=== PATIENT | male | born 1985 | race Caucasian/White ===

== ENCOUNTER 2019-12-06 11:39 | Emergency (ER) | payer OTHER ==
[~2019-12-06] VITALS: Ht 180.3 cm; Wt 65.8 kg
[2019-12-06] MEDS ORDERED: DICLOFENAC SOD100 MG PO (16:42)
[2019-12-06] MEDS ORDERED: FLONASE ALLERG9.9 ML NASAL (16:42)
[2019-12-06] MEDS ORDERED: PYRIDIUM100 MG PO (16:42)
== END 2019-12-06 17:00 | disposition home or self-care (01) ==
LOC: ER 11:39
DX: L72.0 Epidermal cyst (principal); N50.812 Left testicular pain; R07.89 Other chest pain

== ENCOUNTER → 2020-05-13 11:24 | Outpatient (CLI) | payer OTHER ==
[~2020-05-13 11:24] MED LIST: DICLOFENAC SOD100 MG PO; FLONASE ALLERG9.9 ML NASAL; PYRIDIUM100 MG PO
== END | disposition home or self-care (01) ==
LOC: EKG 11:24
PROVIDERS: ATTEND Internal Medicine Endocrinology, Diabetes & Metabolism
DX: E03.8 Other specified hypothyroidism (principal)

== ENCOUNTER 2020-06-16 07:59 | Outpatient (CLI) | payer OTHER | END 2020-06-16 08:13 | disposition home or self-care (01) | LOC: NUCLEAR 07:59 | PROVIDERS: ATTEND Internal Medicine | DX: E04.1 Nontoxic single thyroid nodule (principal) | CPT/HCPCS: 78012; A9531 ==

== ENCOUNTER 2020-06-17 08:37 | Outpatient (CLI) | payer OTHER | END 2020-06-17 08:53 | disposition home or self-care (01) | LOC: NUCLEAR 08:37 | PROVIDERS: ATTEND Internal Medicine | DX: E04.1 Nontoxic single thyroid nodule (principal) | CPT/HCPCS: 78013; A9512 ==

== ENCOUNTER 2023-07-28 16:58 | Emergency (ER) | payer OTHER ==
[~2023-07-28] VITALS: Ht 180.3 cm; Wt 74.8 kg
[2023-07-28 17:50] LABS: HEMATOCRIT 39.3 % (39.0-48.0); HEMOGLOBIN 13.2 g/dL (13-16.00); MEAN CELL VOLUME 86.1 fL (80.0-100.00); MEAN CORPUSCULAR HEMOGLOBIN 28.9 pg (27.00-32.0); MEAN CORPUSCULAR HGB CONC 33.6 g/dl (32.0-36.0); PLATELET COUNT 273 K/uL (150-450); RED BLOOD COUNT 4.56 M/uL (4.00-6.00); RED CELL DISTRIBUTION WIDTH 13.1 % (11.5-14.5)
[2023-07-28 18:11] LABS: CALCIUM 8.8 mg/dL (8.5-10.1); CREATININE SERUM 1.09 mg/dL (0.70-1.30); GFR 75.31; POTASSIUM 4.12 mEq/L (3.5-5.1)
[2023-07-28] MEDS ORDERED: DICLOFENAC POTA50 MG PO (20:42)
[2023-07-28] MEDS ORDERED: NORFLEX100MG PO (20:42)
== END 2023-07-28 21:03 | disposition home or self-care (01) ==
LOC: ER 16:58
PROVIDERS: General Practice
DX: R07.89 Other chest pain (principal); M94.0 Chondrocostal junction syndrome [Tietze]; G40.909 Epilepsy, unspecified, not intractable, without status epilepticus

== ENCOUNTER 2024-10-02 19:21 | Emergency (ER) | payer OTHER ==
[~2024-10-02] VITALS: Ht 180.3 cm; Wt 63.5 kg
[~2024-10-02 19:21] MED LIST changes: +DICLOFENAC POTA50 MG PO; +NORFLEX100MG PO
[2024-10-03 01:05] LABS: HEMATOCRIT 40.4 % (39.0-48.0); HEMOGLOBIN 13.6 g/dL (13-16.00); MEAN CELL VOLUME 90.3 fL (80.0-100.00); MEAN CORPUSCULAR HEMOGLOBIN 30.3 pg (27.00-32.0); MEAN CORPUSCULAR HGB CONC 33.6 g/dl (32.0-36.0); PLATELET COUNT 251 K/uL (150-450); RED BLOOD COUNT 4.48 M/uL (4.00-6.00); RED CELL DISTRIBUTION WIDTH 13.5 % (11.5-14.5)
[2024-10-03 01:35] LABS: ALBUMIN 3.9 gm/dL (3.4-5.0); BILIRUBIN TOTAL 0.95 mg/dL (0.3-1.2); CALCIUM 8.7 mg/dL (8.5-10.1); CREATININE SERUM 1.01 mg/dL (0.70-1.30); GFR 81.81; GLOBULINA 3.3 G/DL (2.4-3.5); POTASSIUM 3.78 mEq/L (3.5-5.1); TOTAL PROTEIN 7.2 gm/dL (6.4-8.2)
[2024-10-03 01:49] LABS: PH,URINE 6.5 (5.0-8.0); URINE APPEARANCE Cloudy; URINE BILIRRUBIN Negative (NEGATIVE); URINE BLOOD Large; URINE COLOR Yellow; URINE GLUCOSE Negative (NEGATIVE); URINE KETONE Trace (NEGATIVE); URINE LEUKOCYTE Moderate; URINE NITRATE Negative
[2024-10-03 04:36] LABS: URINE RBC 36-50 /HPF; URINE WBC 41-50 /hpf
[2024-10-03 04:37] LABS: URINE BACTERIA MODERATE; URINE MUCUS SCANT; URINE PROTEIN 300 (NEGATIVE)
[2024-10-03] MEDS ORDERED: CEPHALEXIN500 MG PO ×2 (05:11)
[2024-10-03] MEDS ORDERED: KETO10TA2 PO ×2 (05:11)
[2024-10-03] MEDS ORDERED: CEFTRIAXONE SODIUM 1,000 MG VIAL IM STA (05:12)
[2024-10-03] MEDS ORDERED: LIDOCAINE HCL 1% 10ML VIAL ONE (05:16)
[2024-10-03] MEDS ORDERED: CEFTRIAXONE SODIUM 1,000 MG VIAL ONE (05:16)
== END 2024-10-03 05:26 ==
LOC: ER 19:23
PROVIDERS: Preventive Medicine Public Health & General Preventive Medicine
DX: N39.0 Urinary tract infection, site not specified (principal)

== ENCOUNTER 2024-11-17 17:37 | Emergency (ER) | payer OTHER ==
[~2024-11-17] VITALS: Ht 180.3 cm; Wt 68.0 kg
[~2024-11-17 17:37] MED LIST changes: +CEPHALEXIN500 MG PO; +KETO10TA2 PO
[2024-11-17] MEDS ORDERED: 0.9 % SODIUM CHLORIDE 500 ML IV ONE (18:45)
[2024-11-17] MEDS ORDERED: ONDANSETRON HCL 2 MG/ML VIAL IV ONE (18:45)
[2024-11-17] MEDS ORDERED: FAMOTIDINE/PF 20 MG/2 ML VIAL IV ONE (18:45)
[2024-11-17 19:15] LABS: HEMATOCRIT 45.9 % (39.0-48.0); HEMOGLOBIN 15.7 g/dL (13-16.00); MEAN CELL VOLUME 90.6 fL (80.0-100.00); MEAN CORPUSCULAR HGB CONC 34.2 g/dl (32.0-36.0); PLATELET COUNT 291 K/uL (150-450); RED BLOOD COUNT 5.07 M/uL (4.00-6.00); RED CELL DISTRIBUTION WIDTH 13.2 % (11.5-14.5)
[2024-11-17 20:16] LABS: INR 1.04; PARTIAL THROMBOPLASTIN TIME 26.8 SECONDS (22.0-34.0); PROTHROMBIN TIME 11.3 SECONDS (9.0-11.5)
[2024-11-17 20:17] LABS: URINE APPEARANCE Clear; URINE BILIRRUBIN Negative (NEGATIVE); URINE BLOOD Negative; URINE COLOR Yellow; URINE GLUCOSE Negative (NEGATIVE); URINE KETONE Negative (NEGATIVE); URINE LEUKOCYTE Trace; URINE NITRATE Negative; URINE PROTEIN Negative (NEGATIVE); URINE UROBILINOGEN 0.2 E.U./dl
[2024-11-17 20:23] LABS: URINE BACTERIA 129.7 uL (0.0-1933); URINE EPITHELIAL CELLS 5.5 uL (0.0-38.8); URINE RBC 6.4 uL (0.0-20.8); URINE WBC 164.6 uL (0.0-23.2)
[2024-11-17 20:25] LABS: ALBUMIN 4.4 gm/dL (3.4-5.0); BILIRUBIN TOTAL 0.44 mg/dL (0.3-1.2); BILIRUBIN,CONJUGATED 0.12 mg/dL (0.0-0.2); BILIRUBIN,UNCONJUGATED 0.32 mg/dL (0.0-0.6); CALCIUM 9.6 mg/dL (8.5-10.1); CREATININE SERUM 0.94 mg/dL (0.70-1.30); GFR 88.88; GLOBULINA 3.6 G/DL (2.4-3.5); POTASSIUM 4.37 mEq/L (3.5-5.1)
[2024-11-17] MEDS ORDERED: MORPHINE SULFATE 2 MG/ML SYRINGE IV ONE (21:30)
[2024-11-17] MEDS ORDERED: KETOROLAC TROMETHAMINE 30 MG VIAL IV ONE (22:00)
[2024-11-17] MEDS ORDERED: PROTONIX40 MG PO (22:49)
[2024-11-17] MEDS ORDERED: LEVSIN/SL0.125 MG SL (22:49)
== END 2024-11-17 22:59 | disposition home or self-care (01) ==
LOC: ER 17:40
PROVIDERS: Emergency Medicine
DX: N20.0 Calculus of kidney (principal); R10.13 Epigastric pain; G40.802 Other epilepsy, not intractable, without status epilepticus
CPT/HCPCS: 36415; 76700; 96365; 96366; 99284; J1885; J2270; J2405; J3490; J7042

== ENCOUNTER 2025-04-15 07:51 | Emergency (ER) | payer OTHER ==
[~2025-04-15] VITALS: Ht 180.3 cm; Wt 65.8 kg
[~2025-04-15 07:51] MED LIST changes: +LEVSIN/SL0.125 MG SL; +PROTONIX40 MG PO
[2025-04-15] MEDS ORDERED: ACETAMINOPHEN 500 MG GEL..CAP PO ONE ×2 (07:54→08:30)
[2025-04-15] MEDS ORDERED: 0.9 % SODIUM CHLORIDE 1,000 ML IV SCH (08:30)
[2025-04-15 09:33] LABS: BASO % 0.5 % (0.1-1.2); EOS # 0.00 (0.04-0.54); EOS % 0.0 % (0.7-7.0); LYMPH # 2.32 (1.18-3.74); LYMPH % 36.4 % (19.3-53.1); MEAN PLATELET VOLUME 8.50 fl (9.4-12.4); MONO # 0.42 (0.24-0.82); MONO % 6.6 % (4.7-12.5); NEUT # 3.58 (1.56-6.13); NEUT % 56.0 % (34.0-71.1); RED CELL DISTRIBUTION WIDTH 11.9 % (11.6-14.4)
[2025-04-15 09:52] LABS: URINE APPEARANCE Clear; URINE BILIRRUBIN Small (NEGATIVE); URINE BLOOD Negative; URINE COLOR Dark Yellow; URINE GLUCOSE Negative (NEGATIVE); URINE LEUKOCYTE Trace; URINE NITRATE Negative; URINE PROTEIN 30 (NEGATIVE); URINE UROBILINOGEN 1.0 E.U./dl
[2025-04-15 09:54] LABS: URINE BACTERIA 21.5 uL (0.0-1933); URINE EPITHELIAL CELLS 25.6 uL (0.0-38.8); URINE RBC 18.7 uL (0.0-20.8); URINE WBC 16.4 uL (0.0-23.2)
[2025-04-15 10:16] LABS: COVID-19 AG NEGATIVE (NEGATIVE)
[2025-04-15 10:18] LABS: ALT/SGPT 36.0 U/L (12-78); AST/SGOT 22.0 U/L (15-37); BILIRUBIN TOTAL 0.49 mg/dL (0.3-1.2); BILIRUBIN,CONJUGATED 0.13 mg/dL (0.0-0.2)
[2025-04-15 10:23] LABS: URINE CAST 0.73 uL (0.0-1.40); URINE KETONE 40 (NEGATIVE)
[2025-04-15] MEDS ORDERED: FAMOTIDINE/PF 20 MG in 0.9 % SODIUM CHLORIDE 8 ML IV PUSH STA (10:24)
[2025-04-15] MEDS ORDERED: OSELTAMIVIR PHOSPHATE 75 MG CAPSULE PO ONE ×2 (10:30→10:33)
[2025-04-15] MEDS ORDERED: ONDANSETRON HCL 2 MG/ML VIAL IV ONE (10:30)
[2025-04-15] MEDS ORDERED: ONDANSETRON HCL 2 MG/ML VIAL ONE (10:34)
[2025-04-15] MEDS ORDERED: FAMOTIDINE/PF 20 MG/2 ML VIAL ONE (10:34)
[2025-04-15 10:49] LABS: ALT/SGPT 37.0 U/L (12-78); AST/SGOT 22.0 U/L (15-37); BILIRUBIN TOTAL 0.58 mg/dL (0.3-1.2); BUN CREA RATIO 15.0 (7.0-25.0); CREATININE SERUM 0.99 mg/dL (0.70-1.30); GFR 83.3; GLOBULINA 3.8 G/DL (2.4-3.5); GLUCOSE FASTING 90.0 mg/dL (65-100); OSMOLALITY SERUM 269.0 MOSM/KG (275-295)
[2025-04-15] MEDS ORDERED: OSEL75CA PO (11:05)
[2025-04-15] MEDS ORDERED: TUSNEL LIQUID178 ML PO (11:05)
== END 2025-04-15 12:26 | disposition home or self-care (01) ==
LOC: ER 07:51
PROVIDERS: General Practice
DX: J10.1 Influenza due to other identified influenza virus with other respiratory manifestations (principal); Z20.822 Contact with and (suspected) exposure to COVID-19

== ENCOUNTER 2025-05-04 14:22 | Inpatient (IN) | payer OTHER ==
[~2025-05-04] VITALS: Ht 185.4 cm; Wt 63.5 kg
[~2025-05-04 14:22] MED LIST changes: +OSEL75CA PO; +TUSNEL LIQUID178 ML PO
[2025-05-04] MEDS ORDERED: 0.9 % SODIUM CHLORIDE 500 ML IV ONE (17:00)
[2025-05-04] MEDS ORDERED: ACETAMINOPHEN 500 MG GEL..CAP PO ONE ×2 (17:00→17:08)
[2025-05-04 17:47] LABS: BASO % 0.9 % (0.1-1.2); EOS # 0.03 (0.04-0.54); EOS % 0.3 % (0.7-7.0); LYMPH # 6.32 (1.18-3.74); LYMPH % 62.1 % (19.3-53.1); MEAN PLATELET VOLUME 8.60 fl (9.4-12.4); MONO # 0.47 (0.24-0.82); MONO % 4.6 % (4.7-12.5); NEUT # 3.24 (1.56-6.13); NEUT % 31.9 % (34.0-71.1); RED CELL DISTRIBUTION WIDTH 12.2 % (11.6-14.4)
[2025-05-04 17:57] LABS: ERYTHROCYTE SEDIMENTATION RATE 19 mm/hr (0-15)
[2025-05-04 17:58] LABS: URINE APPEARANCE Clear; URINE BILIRRUBIN Negative (NEGATIVE); URINE BLOOD Negative; URINE COLOR Dark Yellow; URINE GLUCOSE Negative (NEGATIVE); URINE KETONE 15 (NEGATIVE); URINE LEUKOCYTE Negative; URINE NITRATE Negative; URINE PROTEIN Trace (NEGATIVE); URINE UROBILINOGEN 2.0 E.U./dl
[2025-05-04 18:02] LABS: URINE BACTERIA 4.7 uL (0.0-1933); URINE EPITHELIAL CELLS 2.1 uL (0.0-38.8); URINE RBC 6.5 uL (0.0-20.8); URINE WBC 4.9 uL (0.0-23.2)
[2025-05-04 18:06] LABS: URINE CAST 0.00 uL (0.0-1.40)
[2025-05-04 18:28] LABS: ALT/SGPT 119 U/L (12-78); AST/SGOT 70 U/L (15-37); BILIRUBIN TOTAL 0.46 mg/dL (0.3-1.2); BUN CREA RATIO 15 (7.0-25.0); CREATININE SERUM 0.84 mg/dL (0.70-1.30); GFR 100.70; GLOBULINA 4.4 G/DL (2.4-3.5); GLUCOSE FASTING 95 mg/dL (65-100); OSMOLALITY SERUM 266 MOSM/KG (275-295); PHOSPHOKINASE CREATININE 52 U/L (39-308)
[2025-05-04 18:31] LABS: COVID-19 AG NEGATIVE (NEGATIVE)
[2025-05-04] MEDS ORDERED: CEFTRIAXONE SODIUM 2,000 MG in 0.9 % SODIUM CHLORIDE 100 ML IV SCH (22:36)
[2025-05-04] MEDS ORDERED: 0.9 % SODIUM CHLORIDE 1,000 ML IV SCH (22:45)
[2025-05-04] MEDS ORDERED: CEFTRIAXONE SODIUM 2,000 MG VIAL ONE (23:52)
[2025-05-05 01:12] LABS: ALT/SGPT 117.0 U/L (12-78); AST/SGOT 71.0 U/L (15-37); BILIRUBIN TOTAL 0.36 mg/dL (0.3-1.2); BILIRUBIN,CONJUGATED 0.1 mg/dL (0.0-0.2); PHOSPHOKINASE CREATININE 45.0 U/L (39-308)
[2025-05-05] MEDS ORDERED: TRAMADOL HCL 50 MG TABLET PO PRN (02:45)
[2025-05-05 02:48] VITALS: BP 108/69; O2SAT 97
[2025-05-05] MEDS ORDERED: GABAPENTIN 800 MG TABLET PO SCH ×2 (11:07→18:30)
[2025-05-05 11:19] VITALS: BP 120/78; O2SAT 99
[2025-05-05 16:59] VITALS: BP 115/72; O2SAT 98
[2025-05-06 00:50] VITALS: BP 102/65; O2SAT 99
[2025-05-06 08:22] VITALS: BP 92/59
[2025-05-06] MEDS ORDERED: TUBERCULIN,PURIF.PROT.DERIV. 10 SKIN.TEST SKIN.TEST ID NR (10:15)
[2025-05-06 10:32] LABS: BASO % 0.6 % (0.1-1.2); EOS # 0.05 (0.04-0.54); EOS % 0.7 % (0.7-7.0); LYMPH # 4.55 (1.18-3.74); LYMPH % 65.5 % (19.3-53.1); MEAN PLATELET VOLUME 8.80 fl (9.4-12.4); MONO # 0.42 (0.24-0.82); MONO % 6.0 % (4.7-12.5); NEUT # 1.88 (1.56-6.13); NEUT % 27.1 % (34.0-71.1); RED CELL DISTRIBUTION WIDTH 12.5 % (11.6-14.4)
[2025-05-06 10:35] LABS: ERYTHROCYTE SEDIMENTATION RATE 17 mm/hr (0-15)
[2025-05-06 11:34] LABS: ALT/SGPT 161 U/L (12-78); AST/SGOT 97 U/L (15-37); BILIRUBIN TOTAL 0.36 mg/dL (0.3-1.2); BILIRUBIN,CONJUGATED 0.12 mg/dL (0.0-0.2); BUN CREA RATIO 11 (7.0-25.0); CHOL HDL RATIO 5.6 (0-5.0); CREATININE SERUM 0.76 mg/dL (0.70-1.30); GFR 113.02; GLUCOSE FASTING 114 mg/dL (65-100); HDL 19 mg/dl (40-60); LDL 61 mg/dl (0-130); OSMOLALITY SERUM 273 MOSM/KG (275-295); VLDL 25 (0-39)
[2025-05-06 16:51] VITALS: BP 104/68
[2025-05-06] MEDS ORDERED: DOCUSATE SODIUM 100MG CAP PO SCH (18:02)
[2025-05-06] MEDS ORDERED: ORPHENADRINE CITRATE 30 MG/ML AMPUL IV SCH (18:07)
[2025-05-06] MEDS ORDERED: KETOROLAC TROMETHAMINE 60 MG VIAL IM PRN (18:15)
[2025-05-06] MEDS ORDERED: MORPHINE SULFATE 4 MG/ML CARTRIDGE IV STA (22:57)
[2025-05-06] MEDS ORDERED: ZOLPIDEM TARTRATE 10 MG TABLET PO STA (22:57)
[2025-05-06] MEDS ORDERED: OxyCODONE HCL 5 MG TABLET (ROXICODONE) PO PRN (23:00)
[2025-05-07 01:01] VITALS: BP 95/56; O2SAT 97
[2025-05-07 08:28] VITALS: BP 103/68; O2SAT 99
[2025-05-07] MEDS ORDERED: GABAPENTIN 800 MG TABLET PO SCH (09:00)
[2025-05-07] MEDS ORDERED: PANTOPRAZOLE SODIUM 40 MG TABLET.DR PO SCH (09:00)
[2025-05-07 18:00] VITALS: BP 109/70
[2025-05-07] MEDS ORDERED: OxyCODONE HCL 5 MG TABLET (ROXICODONE) PO PRN (18:35)
[2025-05-08 00:34] VITALS: BP 105/65; O2SAT 98
[2025-05-08 06:18] LABS: BASO % 0.6 % (0.1-1.2); EOS # 0.02 (0.04-0.54); EOS % 0.2 % (0.7-7.0); LYMPH # 5.52 (1.18-3.74); LYMPH % 67.9 % (19.3-53.1); MEAN PLATELET VOLUME 9.80 fl (9.4-12.4); MONO # 0.43 (0.24-0.82); MONO % 5.3 % (4.7-12.5); NEUT # 2.10 (1.56-6.13); NEUT % 25.9 % (34.0-71.1); RED CELL DISTRIBUTION WIDTH 12.4 % (11.6-14.4)
[2025-05-08 06:41] LABS: ALT/SGPT 147.0 U/L (12-78); AST/SGOT 71.0 U/L (15-37); BILIRUBIN TOTAL 0.33 mg/dL (0.3-1.2); BUN CREA RATIO 13.0 (7.0-25.0); CREATININE SERUM 0.72 mg/dL (0.70-1.30); GFR 120.3; GLOBULINA 3.4 G/DL (2.4-3.5); GLUCOSE FASTING 80.0 mg/dL (65-100); OSMOLALITY SERUM 271.0 MOSM/KG (275-295)
[2025-05-08 07:11] LABS: hav igm Negative (Negative); hep b c Negative (Negative); hep b s ag Negative (Negative)
[2025-05-08 07:26] LABS: BAND MAN 2.0 %; LYMPHOCYTE MAN 48.0 %; MONOCYTE MAN 8.0 %; NEUTROPHILS MAN 24.0 %
[2025-05-08 08:51] VITALS: BP 113/70; O2SAT 98
[2025-05-08] MEDS ORDERED: LORazepam 2 MG/ML VIAL ONE (10:02)
[2025-05-08] MEDS ORDERED: LORazepam 2 MG/ML VIAL IV NR (10:15)
[2025-05-08 13:08] LABS: vca igm ab > 160.0 U/mL (0.0-35.9)
[2025-05-08 14:58] LABS: INR 1.15
[2025-05-08 17:43] VITALS: BP 102/66; O2SAT 97
[2025-05-08] MEDS ORDERED: ZOLPIDEM TARTRATE 10 MG TABLET PO SCH (21:00)
[2025-05-08 22:25] LABS: CSF POLYMORPHONUCLEAR 0 %; CSF RBC 0.000 10E6/uL (0-5.0); CSF WBC 0.062 10E3/uL (0-5)
[2025-05-08 22:26] LABS: CSF APPEARANCE CRYSTAL CLEAR
[2025-05-08 22:48] LABS: GLU CSF 43 mg/dl (41-70)
[2025-05-08 22:51] LABS: PROT CSF 90 mg/dl (15-45)
[2025-05-09 02:17] VITALS: BP 120/68; O2SAT 97
[2025-05-09 08:27] VITALS: BP 103/66; O2SAT 96
[2025-05-09] MEDS ORDERED: [UNRECOGNIZED DRUG - OTHER] IV SCH (09:45)
[2025-05-09] MEDS ORDERED: IMMUNE GLOBULIN IV SCH (09:45)
[2025-05-09 12:11] LABS: BASO % 0.5 % (0.1-1.2); EOS # 0.05 (0.04-0.54); EOS % 0.7 % (0.7-7.0); LYMPH # 4.85 (1.18-3.74); LYMPH % 66.2 % (19.3-53.1); MEAN PLATELET VOLUME 9.40 fl (9.4-12.4); MONO # 0.31 (0.24-0.82); MONO % 4.2 % (4.7-12.5); NEUT # 2.07 (1.56-6.13); NEUT % 28.3 % (34.0-71.1); RED CELL DISTRIBUTION WIDTH 12.2 % (11.6-14.4)
[2025-05-09 12:42] LABS: ALT/SGPT 145.0 U/L (12-78); AST/SGOT 65.0 U/L (15-37); BILIRUBIN TOTAL 0.51 mg/dL (0.3-1.2); BUN CREA RATIO 9.0 (7.0-25.0); CREATININE SERUM 0.68 mg/dL (0.70-1.30); GFR 128.5; GLOBULINA 3.5 G/DL (2.4-3.5); GLUCOSE FASTING 97.0 mg/dL (65-100); LDH 326.0 U/L (87-241); OSMOLALITY SERUM 268.0 MOSM/KG (275-295)
[2025-05-09] MEDS ORDERED: [UNRECOGNIZED DRUG - OTHER] IV SCH (17:00)
[2025-05-09] MEDS ORDERED: GLY IV SCH (17:00)
[2025-05-09] MEDS ORDERED: IGA OV50 IV SCH (17:00)
[2025-05-09] MEDS ORDERED: IMMUN GLOB IV SCH (17:00)
[2025-05-09 17:24] VITALS: BP 111/68; O2SAT 97
[2025-05-10 00:35] VITALS: BP 115/64; O2SAT 97
[2025-05-10 08:24] VITALS: BP 104/60; O2SAT 97
[2025-05-10 17:43] VITALS: BP 91/55; O2SAT 100
[2025-05-10] MEDS ORDERED: ORPHENADRINE CITRATE 30 MG/ML AMPUL IV PRN (18:24)
[2025-05-10] MEDS ORDERED: ZOLPIDEM TARTRATE 10 MG TABLET PO PRN (18:36)
[2025-05-11 02:15] VITALS: BP 105/63; O2SAT 97
[2025-05-11 07:07] LABS: HEPATITIS A IGM Negative (Negative); HEPATITIS B CORE IGM Negative (Negative); HEPATITIS B SURFACE ANTIBODY Reactive (.); HEPATITIS C VIRUS ANTIBODY Non Reactive (Non Reactive)
[2025-05-11 07:58] LABS: BASO % 0.3 % (0.1-1.2); EOS # 0.12 (0.04-0.54); EOS % 1.7 % (0.7-7.0); LYMPH # 4.63 (1.18-3.74); LYMPH % 66.0 % (19.3-53.1); MEAN PLATELET VOLUME 10.10 fl (9.4-12.4); MONO # 0.43 (0.24-0.82); MONO % 6.1 % (4.7-12.5); NEUT # 1.80 (1.56-6.13); NEUT % 25.8 % (34.0-71.1); RED CELL DISTRIBUTION WIDTH 12.5 % (11.6-14.4)
[2025-05-11 08:15] LABS: ALT/SGPT 92.0 U/L (12-78); AST/SGOT 35.0 U/L (15-37); BILIRUBIN TOTAL 0.28 mg/dL (0.3-1.2); BUN CREA RATIO 14.0 (7.0-25.0); CREATININE SERUM 0.72 mg/dL (0.70-1.30); GFR 120.3; GLOBULINA 3.9 G/DL (2.4-3.5); GLUCOSE FASTING 95.0 mg/dL (65-100); OSMOLALITY SERUM 271.0 MOSM/KG (275-295)
[2025-05-11 08:30] VITALS: BP 103/72
[2025-05-11] MEDS ORDERED: TUBERCULIN,PURIF.PROT.DERIV. 10 SKIN.TEST SKIN.TEST ID NR (11:15)
[2025-05-11 17:48] VITALS: BP 102/64
[2025-05-12 02:44] VITALS: BP 118/63; O2SAT 98
[2025-05-12 09:02] VITALS: BP 112/67
[2025-05-12 18:22] VITALS: BP 111/72
[2025-05-13 03:00] VITALS: BP 109/63; O2SAT 98
[2025-05-13 08:38] VITALS: BP 137/83
[2025-05-13 17:07] LABS: LOG 10 5.281 (.)
[2025-05-13 17:45] VITALS: BP 115/69; O2SAT 95
[2025-05-14 01:51] VITALS: BP 111/68; O2SAT 99
[2025-05-14 06:07] LABS: BASO % 0.4 % (0.1-1.2); EOS # 0.06 (0.04-0.54); EOS % 0.6 % (0.7-7.0); LYMPH # 6.55 (1.18-3.74); LYMPH % 67.6 % (19.3-53.1); MEAN PLATELET VOLUME 8.90 fl (9.4-12.4); MONO # 0.65 (0.24-0.82); MONO % 6.7 % (4.7-12.5); NEUT # 2.38 (1.56-6.13); NEUT % 24.6 % (34.0-71.1); RED CELL DISTRIBUTION WIDTH 12.9 % (11.6-14.4)
[2025-05-14 07:00] LABS: BAND MAN 1.0 %; LYMPHOCYTE MAN 59.0 %; MONOCYTE MAN 9.0 %; NEUTROPHILS MAN 24.0 %
[2025-05-14 07:09] LABS: ALT/SGPT 89.0 U/L (12-78); AST/SGOT 50.0 U/L (15-37); BILIRUBIN TOTAL 0.31 mg/dL (0.3-1.2); BUN CREA RATIO 11.0 (7.0-25.0); CREATININE SERUM 0.75 mg/dL (0.70-1.30); GFR 114.77; GLOBULINA 4.9 G/DL (2.4-3.5); GLUCOSE FASTING 87.0 mg/dL (65-100); OSMOLALITY SERUM 268.0 MOSM/KG (275-295)
[2025-05-14 09:02] VITALS: BP 95/60; O2SAT 96
[2025-05-14] MEDS ORDERED: DULOXETINE HCL60 MG PO (10:47)
[2025-05-14] MEDS ORDERED: PREGABALIN50 MG PO (10:48)
[2025-05-15 17:08] LABS: quan ag 0.29 IU/mL (.); quan ag 0.31 IU/mL (.); quan mito > 10.00 IU/mL (.); quant nil 0.27 IU/mL (.)
== END 2025-05-14 13:49 | disposition home or self-care (01) | DRG 194 ==
LOC: ER 14:22 → MEDJ 23:05
PROVIDERS: Anesthesiology Pain Medicine; General Practice; Internal Medicine; Internal Medicine Infectious Disease; Student in an Organized Health Care Education/Training Program; ADMIT Internal Medicine; ATTEND Internal Medicine
PROC: B020ZZZ Computerized Tomography (CT Scan) of Brain (ICD-10-PCS; 2025-05-04)
PROC: B030YZZ Magnetic Resonance Imaging (MRI) of Brain using Other Contrast (ICD-10-PCS; 2025-05-05)
PROC: BW3FYZZ Magnetic Resonance Imaging (MRI) of Neck using Other Contrast (ICD-10-PCS; 2025-05-05)
PROC: BR20ZZZ Computerized Tomography (CT Scan) of Cervical Spine (ICD-10-PCS; 2025-05-06)
PROC: BR27ZZZ Computerized Tomography (CT Scan) of Thoracic Spine (ICD-10-PCS; 2025-05-06)
PROC: BR20ZZZ Computerized Tomography (CT Scan) of Cervical Spine (ICD-10-PCS; 2025-05-07)
PROC: BR39YZZ Magnetic Resonance Imaging (MRI) of Lumbar Spine using Other Contrast (ICD-10-PCS; 2025-05-07)
PROC: BR37YZZ Magnetic Resonance Imaging (MRI) of Thoracic Spine using Other Contrast (ICD-10-PCS; 2025-05-07)
PROC: BW24ZZZ Computerized Tomography (CT Scan) of Chest and Abdomen (ICD-10-PCS; 2025-05-09)
PROC: BW21ZZZ Computerized Tomography (CT Scan) of Abdomen and Pelvis (ICD-10-PCS; 2025-05-09)
PROC: 0CJS8ZZ Inspection of Larynx, Via Natural or Artificial Opening Endoscopic (ICD-10-PCS; principal; 2025-05-10)
DX: J10.1 Influenza due to other identified influenza virus with other respiratory manifestations (principal); B20 Human immunodeficiency virus [HIV] disease; R59.1 Generalized enlarged lymph nodes; G40.909 Epilepsy, unspecified, not intractable, without status epilepticus; H70.93 Unspecified mastoiditis, bilateral; J32.9 Chronic sinusitis, unspecified; D72.820 Lymphocytosis (symptomatic); R74.01 Elevation of levels of liver transaminase levels
CPT/HCPCS: 70549; 70552; 72142; 72147; 72149